=== PATIENT | male | born 1960 | race Caucasian/White ===

== ENCOUNTER 2016-05-12 19:18 | Inpatient (IN) | payer BC ==
--- NOTE | ~2016-05-12 | CN ---
Consultation Report [facility] [address] [place]. [address] NAME: TERRENCE URIARTE : 60 STATUS : DIS IN PAT#: [id number] AGE: 56 ADM/REG DATE : 05/12/16 MR#: [id number] REPORT SERV DATE: 05/15/16 DICTATED BY: ABDIFATAH MADRID DATE: 05/13/16 REPORT STATUS : Draft TRANSCRIBED BY: MODL DATE: 05/13/16 GI CONSULTATION DATE OF CONSULTATION: 05/13/2016 REASON FOR CONSULTATION: Regarding hematochezia. HISTORY OF PRESENT ILLNESS: This is a pleasant 56-year-old man, who had colonoscopy yesterday, which included multiple polypectomies including 4 cm polyp located in the transverse colon. It was removed with hot snare to multiple pieces. Argon plasma coagulation was also utilized. The patient called last night with one bout of hematochezia. He was sent to the emergency room, where he continued with hematochezia overnight. He was prepped for colonoscopy today. He has had no abdominal pain. No orthostasis, no dysphagia, or GERD. MEDICAL HISTORY: Hypertension, colon polyps as above, nephrolithiasis, fatty liver, hemorrhoidectomy. ALLERGIES: NONE. MEDICATIONS: Tenormin and Lopid. FAMILY HISTORY: Negative for GI malignancy. SOCIAL HISTORY: Does not drink significant alcohol, but does smoke. REVIEW OF SYSTEMS: A complete review of systems was obtained and negative except that noted in the history of present illness. PHYSICAL EXAMINATION: VITAL SIGNS: He is currently afebrile. Temperature is 98.4, pulse 76, respirations 16, blood pressure 116/62. HEENT: Sclerae anicteric. NECK: Supple without lymphadenopathy. Pharynx is pink without exudate. LUNGS: Clear to auscultation bilaterally. HEART: Regular rate and rhythm. S1, S2 are heard without rubs or gallops. ABDOMEN: Normal bowel sounds. Belly is soft, nontender, nondistended without hepatosplenomegaly. EXTREMITIES: No pedal edema or rash. NEUROLOGIC: Alert and oriented without focal deficit. Muscle exam is nontender. DATA: White blood cell count 11.3, hematocrit 39.9, platelets 234. INR 1.2. BUN 14, creatinine 0.95, liver tests are normal. Consultation Report [facility] [address] [place]. [address] NAME: TERRENCE URIARTE : 60 STATUS : DIS IN PAT#: [id number] AGE: 56 ADM/REG DATE : 05/12/16 MR#: [id number] REPORT SERV DATE: 05/15/16 DICTATED BY: ABDIFATAH MADRID DATE: 05/13/16 REPORT STATUS : Draft TRANSCRIBED BY: MODL DATE: 05/13/16 IMPRESSION: Hematochezia after colonoscopy yesterday, suspect post polypectomy bleeding. RECOMMENDATIONS: 1. Monitor hematocrit and transfuse as necessary. 2. Finish GoLYTELY preparation for colonoscopy to follow. CC/DEEDEE Abdifatah Madrid M.D. / [id number] CC: Natalia Cazares M.D.
--- NOTE | ~2016-05-12 | EGD ---
EGD REPORT [facility] [address] [address] NAME: TERRENCE GAONA : 60 STATUS : ADM IN PAT#: [id number] AGE: 56 ADM/REG DATE : 05/12/16 MR#: [id number] REPORT SERV DATE: 05/13/16 DICTATED BY: DENYS OMRILLO DATE: 05/13/16 REPORT STATUS : Draft TRANSCRIBED BY: [facility] DATE: 05/13/16 Endoscopy Center Patient Name: Terrence Gaona Date of : 1960 Attending MD: DENYS MORILLO MD Procedure Date No Time: 05/13/2016 Procedure: Colonoscopy Indications: Hematochezia after polypectomy 05/12. Patient Profile: Informed consent was obtained from the patient by me prior to the procedure. Risks, benefits, and alternatives were discussed including the risk of bleeding, perforation, infection, reaction to medicine, missed lesion, and cardiopulmonary complications. Referring MD: JENNA RUBIN MD, FELI MCKEON MD Medicines: Monitored Anesthesia Care Complications: No immediate complications. Procedure: Pre-Anesthesia Assessment: - ASA Grade Assessment: III - A patient with severe systemic disease. After I obtained informed consent, the scope was passed under direct vision. Throughout the procedure, the patient's blood pressure, pulse, and oxygen saturations were monitored continuously. The PCF [id number] was introduced through the anus and advanced to the cecum, identified by appendiceal orifice and ileocecal valve. The colonoscope was slowly withdrawn with careful examination all mucosal surfaces including specific attention around flexures and tip deflection behind folds; retroflexion performed in rectum. The colonoscopy was performed without difficulty. The patient tolerated the procedure well. The quality of the bowel preparation was fair. The ileocecal valve, appendiceal orifice and rectum were photographed. Findings: A localized area of moderately congested, erythematous and ulcerated mucosa was found at the hepatic flexure, oozing and large clot present. Area was successfully injected submucosal with of a 1:10,000 solution of epinephrine for hemostasis at base of clot. One hemostatic clip was successfully placed at base of clot after removal. There was no bleeding at the end of the maneuver. Fulguration to stop the bleeding by bipolar probe was successful--additional VV just distal to clip cauterized. Excellent results; no bleeding at end of procedure. Impression: - Congested, erythematous and ulcerated mucosa at the EGD REPORT [address] [place]. [address] NAME: TERRENCE GAONA : 60 STATUS : ADM IN [facility]#: [id number] AGE: 56 ADM/REG DATE : 05/12/16 MR#: [id number] REPORT SERV DATE: 05/13/16 DICTATED BY: DENYS MORILLO DATE: 05/13/16 REPORT STATUS : Draft TRANSCRIBED BY: [employer] DATE: 05/13/16 hepatic flexure. Injected. Clip was placed. Treated by fulguration. Recommendation: Monitor overnight. Full liquids today. Procedure Code(s): --- Professional --- 41334, Colonoscopy, flexible, proximal to splenic flexure; with control of bleeding (eg, injection, bipolar cautery, unipolar cautery, laser, heater probe, stapler, plasma veneer taping machine offbearer) Diagnosis Code(s): --- Professional --- K63.89, Other specified diseases of intestine K63.3, Ulcer of intestine K92.1, Melena CPT copyright 2013 [employer]. All rights reserved. The codes documented in this report are preliminary and upon planner internship review may be revised to meet current compliance requirements. DENYS MORILLO MD 05/13/2016 10:07 AM This report has been signed electronically. Number of Addenda: 0 Note Initiated On: 05/13/2016 9:23 AM Scope Withdrawal Time 0 hours 17 minutes 5 seconds
--- NOTE | ~2016-05-12 | HP ---
History And Physical [id number] [place]. [address] NAME: TERRENCE URIARTE : 60 STATUS : ADM IN [facility]#: [id number] AGE: 56 ADM/REG DATE : 05/12/16 MR#: [id number] REPORT SERV DATE: 05/12/16 DICTATED BY: ANABEL CLIFTON DATE: 05/12/16 REPORT STATUS : Draft TRANSCRIBED BY: MODL DATE: 05/12/16 DATE OF ADMISSION: 05/12/2016 CHIEF COMPLAINT: A 56-year-old male, who had multiple polyps removed early on day of admission, now presenting with bright red blood per rectum. HISTORY OF PRESENTING ILLNESS: The patient's history was obtained through careful interview with the patient and his common-law , coupled with review of [facility] medical records. The patient presented for colonoscopy earlier in the day of admission by Dr. Cholo Holden. He had multiple polyps removed, the largest of which was measured at 4 cm. He had good control of bleeding after his procedure. He was able to be discharged from outpatient colonoscopy, ate a large breakfast and Jell-O later on the day and was feeling quite well. But then about 3 p.m. in the afternoon, he began to feel fecal urgency and had a large bloody bowel movement. He has had two other bloody bowel movements at 4 p.m. and at 8 p.m. and continues to have rectal urgency. He feels weak, but no other major symptoms. No abdominal pain. No headache. No chest pain. No back pain. No shortness of breath. No dizziness or lightheadedness. No fevers or chills. No nausea or vomiting. REVIEW OF SYSTEMS: Otherwise, a 14-point review of systems was obtained and was negative. PAST MEDICAL HISTORY: 1. Hypertension. 2. Colon polyps, seen by Dr. Cholo Holden. 3. Nephrolithiasis, seen by Dr. Brewster. 4. Fatty liver disease. 5. No cardiac disease, no lung disease. PAST SURGICAL HISTORY: Hemorrhoidectomy. ALLERGIES: NO KNOWN DRUG ALLERGIES. SOCIAL HISTORY: The patient smokes cigarettes. He has occasional beer or wine. He lives in [place], [place] with his common-law of many decades. He used to live in [place], but moved to [facility] for work. He has one child who still lives in [place]. FAMILY HISTORY: Mother with Parkinson disease. Father unknown to him. Siblings are healthy. History And Physical [address] [address] NAME: TERRENCE URIARTE : 60 STATUS : ADM IN PAT#: [id number] AGE: 56 ADM/REG DATE : 05/12/16 MR#: [id number] REPORT SERV DATE: 05/12/16 DICTATED BY: ANBAEL CLIFTON DATE: 05/12/16 REPORT STATUS : Draft TRANSCRIBED BY: DEEDEE DATE: 05/12/16 CURRENT MEDICATIONS: Include atenolol 50 mg p.o. daily and Lopid 600 mg p.o. b.i.d. PHYSICAL EXAMINATION: VITAL SIGNS: Temperature 98.0, pulse 82, blood pressure 141/79, respiratory rate 20, and O2 saturation 95% on room air. GENERAL: A pleasant, cooperative, male. No evidence of acute distress at this time. HEENT: Pupils are equal, round, and reactive to light. No conjunctival pallor. No scleral icterus. Nares are patent. Oropharynx is clear of obstruction. Moist mucous membranes. No intraoral lesions. NECK: Trachea midline. No thyromegaly. LYMPH: No cervical lymphadenopathy. No supraclavicular lymphadenopathy. RESPIRATORY: Clear to auscultation at bases. No wheezes, rales, or rhonchi. Normal respiratory effort. CARDIOVASCULAR: Regular rate and rhythm. No murmurs, rubs, or gallops. No extremity edema is appreciated. ABDOMEN: No tenderness at all. Nondistended. Active bowel tones. No hepatosplenomegaly. DERMATOLOGICAL: Warm and dry extremities. EXTREMITIES: No pallor. No cyanosis. PSYCHIATRIC: Normal affect. Good mood. Alert and oriented x3. LABORATORY DATA: White blood cell count 12.9, hemoglobin 16, hematocrit 45, platelets 251. Sodium 141, potassium 3.8, chloride 106, bicarbonate 26, BUN 15, creatinine 1.15, glucose 115, INR 1.1. Hemoccult of stools positive. Liver enzymes within normal limits. STUDIES: EKG by my own evaluation shows sinus rhythm, no major abnormalities. ASSESSMENT AND PLAN: 1. Post polypectomy gastrointestinal bleed. A GoLYTELY bowel prep has been initiated. GI contacted, Dr. Madrid. 2. Renal insufficiency. Place on IV fluids. 3. Hypertension. Monitor. KPL/MODL Anabel Clifton M.D. / [id number] CC: Natalia Cazares M.D. Sumeet Bhushan, M.D.
--- NOTE | ~2016-05-12 | DS ---
Discharge Summary [address] [facility] [place]. [address] NAME: TERRENCE URIARTE : 60 STATUS : DIS IN PAT#: [id number] AGE: 56 ADM/REG DATE : 05/12/16 MR#: [id number] REPORT SERV DATE: 05/15/16 DICTATED BY: ARMIDA MENDEZ DATE: 05/14/16 REPORT STATUS : Draft TRANSCRIBED BY: MODL DATE: 05/14/16 ADMISSION DATE: 05/12/2016 DISCHARGE DATE: 05/14/2016 DISCHARGE DIAGNOSES: 1. Post polypectomy bleeding, status post a colonoscopy and ulcerative mucosa at the hepatic flexure that was treated with fulguration. 2. Hypertension, stable. CONSULTANTS: Abdifatah Madrid M.D. PROCEDURE: Colonoscopy. HISTORY OF PRESENT ILLNESS: This is a 56-year-old male patient, who came to the hospital after the polypectomy bleeding. Please see dictated H and P. HOSPITAL COURSE: He was admitted to hospital for the lower GI bleed, post polypectomy bleed. Was kept on close observation; however, the patient did not require any transfusion. His H and H have been stable, was seen by Dr. Madrid, and had another colonoscopy. The colonoscopy showed ulcerative mucosa at the hepatic flexure, was treated fulguration. After the procedure, he remained in stable condition, did not have any bleeding, tolerating a diet, the patient will be discharged to home in stable condition. Follow up with Juan José NUNEZ. DISCHARGE MEDICATIONS: Same as home medication. DISPOSITION: The patient is discharged to home. Will continue with the soft diet. EKL/MODL Armida Mendez M.D. / [id number] CC: Armida Mendez M.D.
[2016-05-12 18:26] LABS: BASOPHILS 0.4 %; BASOPHILS ABSOLUTE 0.05 10/3/uL (0.0-0.16); EOSINOPHILS 2.6 %; EOSINOPHILS ABSOLUTE 0.33 10/3/uL (0.0-0.53); HEMATOCRIT 45.3 % (40.0-51.0); HEMOGLOBIN 16.2 g/dL (13.6-17.8); IMMATURE GRANULOCYTES 0.4 %; IMMATURE GRANULOCYTES ABSOLUTE 0.05 10/3/uL (0.0-0.11); LYMPHOCYTES 17.2 %; LYMPHOCYTES ABSOLUTE 2.22 10/3/uL (0.67-4.30); MEAN CORPUS HGB CONC 35.8 g/dL (32.0-36.0); MEAN CORPUSCULAR VOLUME 89.3 fL (80-100); MEAN PLATELET VOLUME 9.1 fL (9.2-13.0); MONOCYTES 8.2 %; MONOCYTES ABSOLUTE 1.06 10/3/uL (0.21-1.20); NEUTROPHILS 71.2 %; NEUTROPHILS ABSOLUTE 9.23 10/3/uL (2.02-8.40); PLATELET COUNT 251 10/3/uL (150-400); RBC DISTRIBUTION WIDTH 13.4 % (12.0-16.0); RED CELL COUNT 5.07 10/6/uL (4.7-6.1); WHITE BLOOD CELLS 12.9 10/3/uL (4.5-10.5)
[2016-05-12 18:27] LABS: MANUAL DIFF NO %
[2016-05-12 18:35] LABS: INTERNATIONAL NORMAL RATI 1.1 UNITS (-); PARTIAL THROMBO TIME 30.2 SEC (22.5-37.2); PROTIME (NOT ORD) 13.6 SEC (12.0-14.5)
[2016-05-12 18:41] LABS: A/G RATIO 1.1 (0.7-1.9); ALBUMIN 3.9 G/DL (3.5-5.0); ALKALINE PHOSPHATASE 80 U/L (45-117); BUN (BLOOD UREA NITROGEN) 15 MG/DL (6-23); CALCIUM, SERUM 8.3 MG/DL (8.5-10.4); CHLORIDE, SERUM 106 MMOL/L (96-112); CO2 (CARBON DIOXIDE) 26 MMOL/L (24-34); CREATININE 1.15 MG/DL (0.70-1.30); GFR AFRICAN AMERICAN 82 ML/MIN (>=60); GFR NON AFRICAN AMERICAN 71 ML/MIN (>=60); GLOBULIN 3.5 G/DL (2.5-4.1); GLUCOSE, SERUM 115 MG/DL (60-99); POTASSIUM, SERUM 3.8 MMOL/L (3.5-5.3); SGOT(AST) 17 U/L (5-40); SGPT(ALT) 42 U/L (5-65); SODIUM, SERUM 141 MMOL/L (135-148); TOTAL BILIRUBIN 0.4 MG/DL (0-1.2); TOTAL PROTEIN 7.4 G/DL (6.0-8.5)
[2016-05-12] MEDS ORDERED: ATEN50 PO (20:58)
[2016-05-12] MEDS ORDERED: LOPID6 PO (20:59)
[2016-05-13 00:50] LABS: HEMOGLOBIN 14.9 g/dL (13.6-17.8)
[2016-05-13 04:49] LABS: BASOPHILS 0.3 %; BASOPHILS ABSOLUTE 0.03 10/3/uL (0.0-0.16); EOSINOPHILS 2.9 %; EOSINOPHILS ABSOLUTE 0.33 10/3/uL (0.0-0.53); HEMATOCRIT 39.9 % (40.0-51.0); IMMATURE GRANULOCYTES 0.4 %; IMMATURE GRANULOCYTES ABSOLUTE 0.04 10/3/uL (0.0-0.11); LYMPHOCYTES 26.9 %; LYMPHOCYTES ABSOLUTE 3.04 10/3/uL (0.67-4.30); MEAN CORPUS HGB CONC 35.1 g/dL (32.0-36.0); MEAN CORPUSCULAR HEMOGLOB 31.4 pg (26.0-34.0); MEAN CORPUSCULAR VOLUME 89.5 fL (80-100); MEAN PLATELET VOLUME 9.1 fL (9.2-13.0); NEUTROPHILS 61.5 %; NEUTROPHILS ABSOLUTE 6.98 10/3/uL (2.02-8.40); PLATELET COUNT 234 10/3/uL (150-400); RBC DISTRIBUTION WIDTH 13.2 % (12.0-16.0); RED CELL COUNT 4.46 10/6/uL (4.7-6.1); WHITE BLOOD CELLS 11.3 10/3/uL (4.5-10.5)
[2016-05-13 04:50] LABS: INTERNATIONAL NORMAL RATI 1.2 UNITS (-); MANUAL DIFF NO %; PARTIAL THROMBO TIME 31.2 SEC (22.5-37.2); PROTIME (NOT ORD) 15.1 SEC (12.0-14.5)
[2016-05-13 05:00] LABS: A/G RATIO 1.1 (0.7-1.9); ALBUMIN 3.2 G/DL (3.5-5.0); ALKALINE PHOSPHATASE 62 U/L (45-117); BUN (BLOOD UREA NITROGEN) 14 MG/DL (6-23); CALCIUM, SERUM 7.9 MG/DL (8.5-10.4); CHLORIDE, SERUM 110 MMOL/L (96-112); CO2 (CARBON DIOXIDE) 25 MMOL/L (24-34); CREATININE 0.95 MG/DL (0.70-1.30); GFR AFRICAN AMERICAN 103 ML/MIN (>=60); GFR NON AFRICAN AMERICAN 89 ML/MIN (>=60); GLOBULIN 2.9 G/DL (2.5-4.1); GLUCOSE, SERUM 116 MG/DL (60-99); POTASSIUM, SERUM 3.7 MMOL/L (3.5-5.3); SGOT(AST) 13 U/L (5-40); SGPT(ALT) 31 U/L (5-65); SODIUM, SERUM 145 MMOL/L (135-148); TOTAL BILIRUBIN 0.6 MG/DL (0-1.2); TOTAL PROTEIN 6.1 G/DL (6.0-8.5)
[2016-05-13 12:57] LABS: HEMATOCRIT 36.1 % (40.0-51.0); HEMOGLOBIN 12.6 g/dL (13.6-17.8)
[2016-05-13 18:14] LABS: HEMATOCRIT 36.5 % (40.0-51.0); HEMOGLOBIN 12.7 g/dL (13.6-17.8)
[2016-05-14 05:28] LABS: HEMATOCRIT 36.6 % (40.0-51.0); HEMOGLOBIN 12.9 g/dL (13.6-17.8)
== END 2016-05-14 14:18 | disposition home or self-care (01) | DRG 920 ==
LOC: ER 19:18 → 7NO 21:24
PROVIDERS: Emergency Medicine; Internal Medicine; Internal Medicine Gastroenterology
PROC: 0W3P8ZZ Control Bleeding in Gastrointestinal Tract, Via Natural or Artificial Opening Endoscopic (ICD-10-PCS; principal; 2016-05-13 09:41)
PROC: 0D5L8ZZ Destruction of Transverse Colon, Via Natural or Artificial Opening Endoscopic (ICD-10-PCS; 2016-05-13 09:41)
DX: K91.840 Postprocedural hemorrhage of a digestive system organ or structure following a digestive system procedure (principal); K63.3 Ulcer of intestine; K76.0 Fatty (change of) liver, not elsewhere classified; Y84.8 Other medical procedures as the cause of abnormal reaction of the patient, or of later complication, without mention of misadventure at the time of the procedure; Y92.9 Unspecified place or not applicable; Z86.010 Personal history of colon polyps; I10 Essential (primary) hypertension; F17.210 Nicotine dependence, cigarettes, uncomplicated
CPT/HCPCS: 36415; 80053; 83735; 83880; 85014; 85018; 85025; 85610; 85730; 86850; 86900; 86901; 86920; 93005; 99285; A9270-GY